=== PATIENT | male | born 1970 ===

== ENCOUNTER 2017-02-03 18:33 | Inpatient (IN) | payer SELFPAY ==
[2017-02-03 19:48] LABS: BASO # 0.1 K/uL (0.0-0.2); BASO % 0.5 % (0.0-2.0); EOS % 0.5 % (0.0-4.0); HEMATOCRIT 38.3 % (35.0-51.0); LYMPH % 20.9 % (20.0-40.0); MEAN CELL VOLUME 90.3 fL (80.0-94.0); MEAN CORPUSCULAR HEMOGLOBIN 31.4 pg (27.0-31.0); MEAN CORPUSCULAR HGB CONC 34.7 g/dL (33.0-37.0); MEAN PLATELET VOLUME 8.1 fL (7.2-11.7); MONO # 0.5 K/uL (0.0-0.8); NRBC % 0.3 % (0.0-2.0); RBC URINE 8 /hpf (0-3); RED CELL DISTRIBUTION WIDTH 15.4 % (11.5-14.5); URINE BACTERIA RARE (<OCC); URINE BILIRUBIN NEGATIVE (NEGATIVE); URINE BLOOD 2+ (NEGATIVE); URINE COLOR Yellow (YELLOW); URINE GLUCOSE (UA) NORMAL (Normal); URINE KETONE NEGATIVE (NEGATIVE); URINE LEUKOCYTE ESTERASE NEG Leu/uL (Negative); URINE PROTEIN NEGATIVE (NEGATIVE); URINE UROBILINOGEN NORMAL mg/dL (0.2-1.0); WBC URINE 1 /hpf (0-5); WHITE BLOOD COUNT 9.4 K/uL (4.8-10.8)
[2017-02-03 20:06] LABS: CHLORIDE 110 mmol/L (98-107); POTASSIUM 3.9 mmol/L (3.6-5.2); SODIUM 145 mmol/L (132-148)
[2017-02-03 20:08] LABS: GFR AFRICAN-AMERICAN > 60
[2017-02-03 20:09] LABS: ALB/GLOB RATIO 1.1 (1.0-2.1); ALKALINE PHOSPHATASE 74 U/L (38-126); ALT/SGPT 17 U/L (21-72); AST/SGOT 20 U/L (17-59); BILIRUBIN,TOTAL 0.8 mg/dL (0.2-1.3); BLOOD UREA NITROGEN 15 mg/dL (9-20); CARBON DIOXIDE 25 mmol/L (22-30); GLUCOSE,RANDOM 111 mg/dL (75-110)
[2017-02-03 20:10] LABS: ALCOHOL SERUM < 10 mg/dl (0-10)
--- NOTE | 2017-02-03 20:33 | C.PDOC ---
History Of Present Illness Patient is a 46 year old male who presents to the ER for heroin detox. Patient has been prescreened by crisis. Denies any physical complaints at this time. Time Seen by Provider: 02/03/17 19:34 Chief Complaint (Nursing): Substance Abuse History Per: Patient History/Exam Limitations: no limitations Onset/Duration Of Symptoms: Hrs Current Symptoms Are (Timing): Still Present Suicide/Self Injury Attempted (Context): None Modifying Factor(s): Narcotics Severity: None Associated Symptoms: denies: Depression, Suicidal Thoughts, Suicidal Plan Involuntary Hold By: None Recent travel outside of the [place]: No Past Medical History Reviewed: Historical Data, Nursing Documentation, Vital Signs Vital Signs: Last Vital Signs Temp 98.3 F 02/03/17 18:48 Pulse 84 02/03/17 18:48 Resp 16 02/03/17 18:48 BP 120/79 02/03/17 18:48 Pulse Ox 98 02/03/17 20:37 - Medical History PMH: Asthma Surgical History: No Surg Hx Family History: States: Unknown Family Hx - Social History Hx Alcohol Use: No Hx Substance Use: Yes - Immunization History Hx Tetanus Toxoid Vaccination: No Hx Influenza Vaccination: No Hx Pneumococcal Vaccination: No Review Of Systems Constitutional: Negative for: Fever, Chills Gastrointestinal: Negative for: Nausea, Vomiting, Diarrhea Physical Exam - Physical Exam Additional Physical Exam Comments: Constitutional: No acute distress. Head: Normocephalic. Atraumatic. Eyes: PERRL. ENT: Moist mucous membranes. Neck: Supple. Cardiovascular: Regular rate. Radial pulse 2+ bilaterally. Chest: No tenderness. Respiratory: Clear to auscultation bilaterally. GI: Soft. Nontender. Nondistended. Back: No CVA tenderness. Musculoskeletal: No tenderness or swelling of extremities. Skin: No rash. Neurologic: Alert, no focal deficit. ED Course And Treatment - Laboratory Results Result Diagrams: 02/03/17 19:36 02/03/17 19:36 O2 Sat by Pulse Oximetry: 98 (Room air) Pulse Ox Interpretation: Normal Medical Decision Making Medical Decision Making: Plan: * Nicotine patch Disposition - Disposition Disposition: HOME/ ROUTINE Disposition Time: 20:51 Condition: FAIR - Clinical Impression Clinical Impression: Opioid use disorder, severe, dependence - Scribe Statement The provider has reviewed the documentation as recorded by the Scribrosalva Milner All medical record entries made by the Katherine were at my direction and personally dictated by me. I have reviewed the chart and agree that the record accurately reflects my personal performance of the history, physical exam, medical decision making, and the department course for this patient. I have also personally directed, reviewed, and agree with the discharge instructions and disposition.
[2017-02-04] MEDS ORDERED: Aluminum Hydroxide/Magnesium Hydroxide Susp (30 mL) PO PRN (10:00)
[2017-02-04] MEDS: Emtricitabine-Tenofovir 200 mg-300 mg Tab PO SCH (11:32)
--- NOTE | 2017-02-04 11:34 | PCM.PSYCH ---
Initial Psychiatric Evaluation - Initial Psychiatric Evaluation Type of Admission: Voluntary Legal Status: Capacity Chief Complaint (in patient's own words): "heroin" History of Present Illness and Precipitating Events: The patient is seen, chart reviewed and case discussed. This is a 46-year-old male, single with no child, unemployed, "hustling" in the streets, living with his parents in [place], [place]. The patient states he was using 10 bags of IV heroin but decreased it to 5 bags , however he states that the bags in [place] are larger than the usual. He has been using heroin for about 23 years. He was on methadone in the past in [place] but quit around 1999. His dose was 80 mg. He used Suboxone only from the streets. He also uses Xanax about 4 mg a day and occasionally marijuana. He smokes 1 pack per day cigarettes. He was in detox 8 times and rehabilitation twice. He denies any psych symptoms straight. Past psych history: He was hospitalized with a suicide attempt when he was 20 years old. However, he denies any ongoing problems or current symptoms since then. Family psych history: Sister used heroin. Brother OD''ed and from heroin. Medical history: He is HIV positive and compliant with medications. Also has hepatitis C. Current Medications: Active Medications Generic Name Dose Route Start Last Admin Trade Name Freq PRN Reason Stop Dose Admin Al Hydrox/Mg Hydrox/Simethicone 30 ml 02/04/17 10:00 Maalox 30 Ml PO TID PRN Indigestion / Heartburn Chlordiazepoxide 25 mg 02/04/17 06:00 02/04/17 10:07 Librium PO 02/07/17 05:59 25 mg TID ANTONY Administration Taper Clonidine HCl 0.1 mg 02/04/17 10:00 Catapres PO Q8 PRN COWS Score More or Equal to 5 Emtricitabine/Tenofovir 1 tab 02/04/17 11:00 Truvada 200 Mg-300 Mg PO DAILY ANTONY Loperamide HCl 2 mg 02/04/17 10:00 Imodium PO Q8 PRN Diarrhea Methadone HCl 20 mg 02/04/17 10:00 02/04/17 10:07 Methadone PO 02/09/17 09:59 20 mg Q24H ANTONY Administration Taper Nicotine 1 patch 02/04/17 10:15 Nicoderm Cq TD DAILY ANTONY Ondansetron HCl 4 mg 02/04/17 10:00 Zofran Tab PO Q8 PRN Nausea/Vomiting Raltegravir 400 mg 02/04/17 11:00 Isentress PO BID ANTONY Trazodone HCl 100 mg 02/04/17 01:19 Desyrel PO HS PRN Insomnia Past Psychiatric History - Past Psychiatric History Previous Treatment History: Inpatient (20 y/o) Pertinent Medical Hx (Current Medical&Sleep Prob, Allergies): Allergies Allergy/AdvReac Type Severity Reaction Status Date / Time No Known Allergies Allergy Verified 02/03/17 18:50 Albuterol HFA [Ventolin HFA 90 mcg/actuation (8 g)] 2 puff IH [id number] 02/03/17 Review of Systems - Neurological Neurological: UNREMARKABLE - Psychiatric Psychiatric: Abnormal Sleep Pattern, Anxiety. absent: Depression, Hallucinations, Homicidal Ideation, Suicidal Ideation Mental Status Examination - Personal Presentation Personal Presentation: Looks stated age - Affect Affect: Constricted - Motor Activity Motor Activity: Calm - Reliability in Providing Information Reliability in Providing Information: Good - Speech Speech: Organized - Mood Mood: Anxious - Formal Thought Process Formal Thought Process: No Impairment - Cognitive Functions Orientation: Person, Place, Situation, Time Sensorium: Alert Attention/Concentration: Attentive Estimate of Intelligence: Average Judgement: Intact, as evidence by: Insight regarding need for hospitalization Memory: Recent intact, as evidence by: Ability to recall events of the day, Remote intact, as evidenced by: Abilit to recall sig. 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 Tobacco use d/o -severe Cannabis use d/o - moderate - Recommended/Plan of Treatment Treatment Recommendations and Plan of Treatment: Opioids: Methadone detox As needed meds Attend groups and activities HI for abstinence and CBT for relapse prevention Support and psychoeducation Consider and encourage MAT Refer to after care Benzos: Librium detox Gabapentin for augmentation As needed meds and vitamins Attend groups and activities HI for abstinence and CBT for relapse prevention Support and psychoeducation Consider and encourage MAT Refer to after care Tobacco: Patch HI for absinence Cannabis: Mi for abstinence Gabapentin 33 min Projected ELOS: 4-5 days Prognosis: good with tx Discharge Plan and Discharge Criteria: no wdw sxs Refer to rehab, consider MAT - Smoking Cessation Smoking Cessation Initiated: Yes
[2017-02-05] MEDS: Emtricitabine-Tenofovir 200 mg-300 mg Tab PO SCH (10:03)
--- NOTE | 2017-02-05 12:19 | RAD ---
Chest x-ray two views History: Medical clearance. Comparison: None available. Findings: No focal infiltrate or effusion. Mild right hilar prominence. Nodular density in the left suprahilar region likely represent represents vessel on end. Heart size within normal limits. Degenerative changes in the spine. Impression: No focal infiltrate or effusion.
--- NOTE | 2017-02-05 14:19 | PCM.PYCHPN ---
Psychiatric Progress Note - Psychiatric Progress Note Patient seen today, length of contact: 16 min Patient Chief Complaint: "heroin" Problems Identified/Issues Discussed: The pt is seen, chart reviewed, case discussed with staff. The pt is compliant with medications and reports no side-effects. Symptoms are improving but needs more time to stabilize. He claimed yesterday's dose did not hold him but he looked fine. He is reassured that he would get an extra dose if need be. After care discussed, support and psychoeducation given. Medication Change: Yes (prn methadone) Medical Record Reviewed: Yes Mental Status Examination - Cognitive Function Orientation: Person, Place, Situation, Time Memory: Impaired Attention: WNL Concentration: Poor Association: WNL Fund of Knowledge: WNL - Mood Mood: Anxious - Affect Affect: Constricted - Speech Speech: Appropriate - Formal Thought Process Formal Thought Process: No Impairment - Suicidal Ideation Suicidal Ideation: No - Homicidal Ideation Homicidal Ideation: No Goal/Treatment Plan - Goal/Treatment Plan Need for Continued Stay: Discharge may exacerbated symptoms, Severe functional impairment Progress Toward Problem(s) and Goals/Treatment Plan: Opioids: Methadone detox As needed meds Attend groups and activities HI for abstinence and CBT for relapse prevention Support and psychoeducation Consider and encourage MAT Refer to after care Benzos: Librium detox Gabapentin for augmentation As needed meds and vitamins Attend groups and activities HI for abstinence and CBT for relapse prevention Support and psychoeducation Consider and encourage MAT Refer to after care Tobacco: Patch HI for absinence Cannabis: Mi for abstinence Gabapentin Estimated Date of D/C: 02/10/17 - Smoking Cessation Smoking Cessation Initiated: Yes
[2017-02-06] MEDS: Emtricitabine-Tenofovir 200 mg-300 mg Tab PO SCH (09:37)
[2017-02-06 13:47] VITALS: RESP 18
--- NOTE | 2017-02-06 19:18 | PCM.PYCHPN ---
Psychiatric Progress Note - Psychiatric Progress Note Patient seen today, length of contact: 17 min Patient Chief Complaint: "Better today" Problems Identified/Issues Discussed: The pt is seen, chart reviewed, case discussed with staff. Support given, CBT and VA used briefly No new symptoms reported, improving slowly and needs some more time No SEs from medications, risks discussed. After care discussed, he is accepted by [facility] but not having insurance and hence getting rx will be a problem Medication Change: Yes (detox changes daily) Medical Record Reviewed: Yes Mental Status Examination - Cognitive Function Orientation: Person, Place, Situation, Time Memory: Impaired Attention: WNL Concentration: Poor Association: WNL Fund of Knowledge: WNL - Mood Mood: Anxious - Affect Affect: Constricted - Speech Speech: Appropriate - Formal Thought Process Formal Thought Process: No Impairment - Suicidal Ideation Suicidal Ideation: No - Homicidal Ideation Homicidal Ideation: No Goal/Treatment Plan - Goal/Treatment Plan Need for Continued Stay: Discharge may exacerbated symptoms, Severe functional impairment Progress Toward Problem(s) and Goals/Treatment Plan: Opioids: Methadone detox As needed meds Attend groups and activities VA for abstinence and CBT for relapse prevention Support and psychoeducation Consider and encourage MAT Refer to after care Benzos: Librium detox Gabapentin for augmentation As needed meds and vitamins Attend groups and activities VA for abstinence and CBT for relapse prevention Support and psychoeducation Consider and encourage MAT Refer to after care Tobacco: Patch VA for absinence Cannabis: Mi for abstinence Gabapentin Estimated Date of D/C: 02/09/17
[2017-02-07] MEDS: Emtricitabine-Tenofovir 200 mg-300 mg Tab PO SCH (09:23)
[2017-02-08] MEDS: Emtricitabine-Tenofovir 200 mg-300 mg Tab PO SCH (09:47)
--- NOTE | 2017-02-08 21:34 | PCM.PYCHPN ---
Psychiatric Progress Note - Psychiatric Progress Note Patient seen today, length of contact: 15 min Patient Chief Complaint: i can't sleep! Problems Identified/Issues Discussed: PAWS withdrawal symptoms triggers Medical Problems: nothing acute Diagnostic Results: reviewed Medication Change: Yes (detox changes daily) Medical Record Reviewed: Yes Mental Status Examination - Cognitive Function Orientation: Person, Place, Situation, Time Memory: Impaired Attention: WNL Concentration: Poor Association: WNL Fund of Knowledge: WNL - Mood Mood: Anxious - Speech Speech: Appropriate - Formal Thought Process Formal Thought Process: No Impairment - Homicidal Ideation Homicidal Ideation: No Goal/Treatment Plan - Goal/Treatment Plan Need for Continued Stay: Remain at risks for inpatient hospitalization, Discharge may exacerbated symptoms, Severe functional impairment Progress Toward Problem(s) and Goals/Treatment Plan: opiate withdrawal methadone taper opiate use disorder attending groups sedative hypnotic withdrawal librium sedative-hypnotic use disorder attending groups Estimated Date of D/C: 02/09/17 - Smoking Cessation Smoking Cessation Initiated: Yes
--- NOTE | 2017-02-08 21:39 | PCM.PYCHPN ---
Psychiatric Progress Note - Psychiatric Progress Note Patient seen today, length of contact: 15 min Patient Chief Complaint: i I finally slept but the bed is very uncomfortable Problems Identified/Issues Discussed: aftercare triggers Medical Problems: nothing acute Diagnostic Results: reviewed Medication Change: Yes (detox changes daily) Medical Record Reviewed: Yes Mental Status Examination - Cognitive Function Orientation: Place, Situation Memory: Impaired Attention: WNL Concentration: WNL Association: WNL Fund of Knowledge: WNL - Mood Mood: Anxious - Affect Affect: Constricted - Speech Speech: Appropriate - Formal Thought Process Formal Thought Process: No Impairment - Suicidal Ideation Suicidal Ideation: No - Homicidal Ideation Homicidal Ideation: No Goal/Treatment Plan - Goal/Treatment Plan Need for Continued Stay: Remain at risks for inpatient hospitalization, Discharge may exacerbated symptoms, Severe functional impairment Progress Toward Problem(s) and Goals/Treatment Plan: opiate withdrawal methadone taper opiate use disorder attending groups sedative hypnotic withdrawal librium sedative-hypnotic use disorder attending groups Estimated Date of D/C: 02/09/17 - Smoking Cessation Smoking Cessation Initiated: Yes
--- NOTE | 2017-02-09 08:50 | PCM.PYCHDC ---
Mental Status Examination - Mental Status Examination Orientation: Person, Place, Situation, Time Memory: Intact Mood: Anxious Affect: Constricted Speech: Appropriate Attention: WNL Concentration: WNL Association: WNL Fund of Knowledge: WNL Formal Thought Process: No Impairment Suicidal Ideation: No Current Homicidal Ideation?: No Discharge Summary - Discharge Note Reason for Hospitalization: Heroin detox, xanax abuse. Consultations:: List each consultation separately and include: 1. Reason for request. 2. Findings. 3. Follow-up Summary of Hospital Course include:: 1. Description of specific treatment plan utilized for patients during their course of treatmen. 2. Summarize the time- course for resolution of acute symptoms and/or regressed behaviors. 3. Describe issues identified and worked on during hospitalization. 4. Describe medication utilized. 5. Describe medical problems identified and treated. 6. Reassessment of suicide risk Summary of Hospital Course: On admission: The patient is seen, chart reviewed and case discussed. This is a 46-year-old male, single with no child, unemployed, "hustling" in the streets, living with his parents in [place], [place]. The patient states he was using 10 bags of IV heroin but decreased it to 5 bags , however he states that the bags in [place] are larger than the usual. He has been using heroin for about 23 years. He was on methadone in the past in [place] but quit around 1999. His dose was 80 mg. He used Suboxone only from the streets. He also uses Xanax about 4 mg a day and occasionally marijuana. He smokes 1 pack per day cigarettes. He was in detox 8 times and rehabilitation twice. He denies any psych symptoms straight. Past psych history: He was hospitalized with a suicide attempt when he was 20 years old. However, he denies any ongoing problems or current symptoms since then. Family psych history: Sister used heroin. Brother OD'ed and from heroin. Medical history: He is HIV positive and compliant with medications. Also has hepatitis C. Hospital course: The pt was admitted and started on treatment with psychotherapy, support, psychoeducation and medications. GA and CBT used. The pt attended groups and activities, as well as milieu therapy. All the risks and benefits of medications are discussed and the patient understood and agreed. After care discussed with the patient. He is accepted by [facility] and left. Since he did not have any insurance he got a paper rx and he said his sister would pay them He has his HIV med and rx. Importance of adherence to all meds but jon HIV meds emphasized. 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 Follow after care plan as discussed at [facility] Use relapse prevention skills Return to ER or call 911 if suicidal, homicidal or symptoms relapse. Stay away from stress, alcohol and drugs. See primary doctor once a year. Prescriptions/Medication Reconciliation: QUEtiapine [Seroquel] 100 mg PO HS #30 tab traZODone [Desyrel] 100 mg PO HS PRN #30 tab PRN Reason: Insomnia - Smoking Cessation Smoking Cessation Medication prescribed: No - Antipsychotic Medications Pt discharged on 2 or more routine antipsychotic medications: No
[2017-02-09] MEDS: Emtricitabine-Tenofovir 200 mg-300 mg Tab PO SCH (09:45)
[2017-02-09 10:08] VITALS: BP 118/78; PULSE 74; TEMP 99.6; O2SAT 100
== END 2017-02-09 10:00 | disposition home or self-care (01) | DRG 895 ==
LOC: C.ER 18:33 → C.7D 21:48
PROVIDERS: ADMIT Psychiatry & Neurology Psychiatry; ATTEND Psychiatry & Neurology Psychiatry
PROC: HZ2ZZZZ Detoxification Services for Substance Abuse Treatment (ICD-10-PCS; principal; 2017-02-03)
PROC: HZ42ZZZ Group Counseling for Substance Abuse Treatment, Cognitive-Behavioral (ICD-10-PCS; 2017-02-03)
PROC: HZ81ZZZ Medication Management for Substance Abuse Treatment, Methadone Maintenance (ICD-10-PCS; 2017-02-03)
PROC: HZ46ZZZ Group Counseling for Substance Abuse Treatment, Psychoeducation (ICD-10-PCS; 2017-02-03)
DX: F11.23 Opioid dependence with withdrawal (principal); Z21 Asymptomatic human immunodeficiency virus [HIV] infection status; B19.20 Unspecified viral hepatitis C without hepatic coma; F17.210 Nicotine dependence, cigarettes, uncomplicated; F12.90 Cannabis use, unspecified, uncomplicated; F13.239 Sedative, hypnotic or anxiolytic dependence with withdrawal, unspecified